=== PATIENT | male | born 1995 ===

== ENCOUNTER → 2019-06-15 | Outpatient (CLI) | payer OTHER | LOC: MHCPAIN 14:26 | DX: M47.817 Spondylosis without myelopathy or radiculopathy, lumbosacral region (principal); M54.16 Radiculopathy, lumbar region | CPT/HCPCS: G0463 ==

== ENCOUNTER → 2019-06-29 | Outpatient (CLI) | payer OTHER | LOC: MHCPAIN 12:40 | DX: M54.5 Low back pain (principal) ==

== ENCOUNTER → 2019-07-13 | Outpatient (CLI) | payer OTHER | LOC: MHCPAIN 09:32 | DX: M47.817 Spondylosis without myelopathy or radiculopathy, lumbosacral region (principal) | CPT/HCPCS: G0463 ==